=== PATIENT | male | born 1990 | race Caucasian/White ===

== ENCOUNTER 2024-11-02 14:18 | Emergency (ER) | payer SELFPAY ==
[2024-11-02] VITALS (14 sets, daily range): BP systolic 121–147; BP diastolic 84–100; PULSE 68–91; RESP 12–26; TEMP 36.6; O2SAT 97–100; BMI 25.8
--- NOTE | 2024-11-02 14:19 | DI.RAD.S_ITS ---
PROCEDURE: XR CHEST 1V INDICATIONS: Chest Pain TECHNIQUE: One view of the chest was acquired. COMPARISON: None. FINDINGS: Surgical changes and devices: None. Lungs and pleura: Lungs are clear. No pleural effusions or pneumothorax. Mediastinum: Mediastinal contours appear normal. Heart size is normal. Bones and chest wall: No suspicious bony lesions. Overlying soft tissues appear unremarkable. IMPRESSION: No acute pulmonary process. Dictated by: Randee Gibson M.D. on 11/02/2024 at 15:04 Approved by: Randee Gibson M.D. on 11/02/2024 at 15:04
--- NOTE | 2024-11-02 14:19 | EKG_ITS ---
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
--- NOTE | 2024-11-02 14:39 | ED.SYNCOPE ---
HPI - Syncope General Chief Complaint: Syncope Stated Complaint: Passed out at work Time Seen by Provider: 11/02/24 14:30 History of Present Illness HPI narrative: This patient is a 34-year-old healthy male presenting today with a syncopal episode. 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 Sounds like he was quickly woken up no significant trauma. And was driven here by POV. Patient reports that he does not generally eat breakfast or lunch does not eat till the afternoon. He has not had anything to eat today. He admits to drinking alcohol he used to drink a 5th a day but now has only a quarter of a 5th. He admits to drinking alcohol last night. Denies any other drug use or smoking today. It is slightly warm out side friend reports he does not tolerate the heat very well. Patient reports that he has had for 5 bottles of water. No injury from the fall. Denies any chest pain or shortness of breath now Related Data Allergies Allergy/AdvReac Type Severity Reaction Status Date / Time Sulfa (Sulfonamide Allergy Verified 11/02/24 14:36 Antibiotics) Exam Initial Vital Signs Initial Vital Signs: Vital Signs Temperature 97.8 F 11/02/24 14:25 Pulse Rate 91 H 11/02/24 14:25 Respiratory Rate 20 11/02/24 14:25 Blood Pressure 134/87 11/02/24 14:25 Pulse Oximetry 97 11/02/24 14:25 Oxygen Delivery Method Room Air 11/02/24 14:25 GENERAL: Alert pleasant well-appearing 34-year-old male and in no acute distress. HEENT: Head atraumatic,EOMI, pupils reactive, face symmetric, moist mucous membranes CARDIOVASCULAR: Regular rate and rhythm without murmurs, rubs or gallops. RESPIRATORY: Breath sounds equal bilaterally, no wheezes rales or rhonchi. ABDOMEN: Soft, nontender. Normoactive bowel sounds all 4 quadrants. No guarding or rebound. EXTREMITIES: Normal range of motion, no clubbing or edema. Neurovascularly intact NEUROLOGICAL: Alert and oriented x4.Normal gait and speech. Cranial nerves II through XII grossly intact. Team Psychologist strength equal bilaterally SKIN: Warm, dry, no laceration, no petechiae, no rashes or lesions. Course Orders Ordered: Discontinued Medications Aspirin (Aspirin 81 Mg Chew Tab) 324 mg PO NOW ONE Stop: 11/02/24 14:20 Last Admin: 11/02/24 15:35 Dose: 324 mg Documented By: DANNIELLE Sodium Chloride (Normal Saline 0.9%) 1,000 mls @ 1,000 mls/hr IV BOLUS ONE Stop: 11/02/24 15:38 Last Infusion: 11/02/24 16:30 Dose: Infused Documented By: Admin: 11/02/24 15:35 Dose: 1,000 mls/hr Documented By: DANNIELLE Potassium Chloride (Potassium Chloride 20 Meq Tab) 20 meq PO NOW ONE Stop: 11/02/24 17:42 Last Admin: 11/02/24 17:47 Dose: 20 meq Documented By: ELKIN Vital Signs Vital signs: Vital Signs - 8 hr 11/02/24 14:25 11/02/24 14:33 11/02/24 15:00 Temperature 97.8 F Pulse Rate 91 H 90 Pulse Rate [Orthostatic Lying] Pulse Rate [Orthostatic Sitting] Pulse Rate [Orthostatic Standing] Respiratory Rate 20 12 Blood Pressure 134/87 122/84 Blood Pressure [Orthostatic Lying] Blood Pressure [Orthostatic Sitting] Blood Pressure [Orthostatic Standing] Pulse Oximetry 97 Oxygen Delivery Method Room Air 11/02/24 15:00 11/02/24 15:23 11/02/24 15:23 Temperature Pulse Rate 89 86 Pulse Rate [Orthostatic Lying] Pulse Rate [Orthostatic Sitting] Pulse Rate [Orthostatic Standing] Respiratory Rate 14 17 Blood Pressure 134/90 Blood Pressure [Orthostatic Lying] Blood Pressure [Orthostatic Sitting] Blood Pressure [Orthostatic Standing] Pulse Oximetry 97 97 Oxygen Delivery Method 11/02/24 15:30 11/02/24 15:30 11/02/24 16:00 Temperature Pulse Rate 75 Pulse Rate [Orthostatic Lying] Pulse Rate [Orthostatic Sitting] Pulse Rate [Orthostatic Standing] Respiratory Rate 14 Blood Pressure 121/86 147/100 H Blood Pressure [Orthostatic Lying] Blood Pressure [Orthostatic Sitting] Blood Pressure [Orthostatic Standing] Pulse Oximetry 97 Oxygen Delivery Method 11/02/24 16:00 11/02/24 16:23 11/02/24 16:23 Temperature Pulse Rate 79 68 Pulse Rate [Orthostatic Lying] Pulse Rate [Orthostatic Sitting] Pulse Rate [Orthostatic Standing] Respiratory Rate 26 H 14 Blood Pressure 141/84 H Blood Pressure [Orthostatic Lying] Blood Pressure [Orthostatic Sitting] Blood Pressure [Orthostatic Standing] Pulse Oximetry 99 98 Oxygen Delivery Method 11/02/24 16:30 11/02/24 16:30 11/02/24 16:44 Temperature Pulse Rate 69 77 Pulse Rate [Orthostatic Lying] Pulse Rate [Orthostatic Sitting] Pulse Rate [Orthostatic Standing] Respiratory Rate 13 12 Blood Pressure 129/85 Blood Pressure [Orthostatic Lying] Blood Pressure [Orthostatic Sitting] Blood Pressure [Orthostatic Standing] Pulse Oximetry 99 100 Oxygen Delivery Method 11/02/24 16:44 11/02/24 16:45 11/02/24 16:45 Temperature Pulse Rate 76 Pulse Rate [Orthostatic Lying] Pulse Rate [Orthostatic Sitting] Pulse Rate [Orthostatic Standing] Respiratory Rate 12 Blood Pressure 135/89 135/87 Blood Pressure [Orthostatic Lying] Blood Pressure [Orthostatic Sitting] Blood Pressure [Orthostatic Standing] Pulse Oximetry 100 Oxygen Delivery Method 11/02/24 17:12 Temperature Pulse Rate Pulse Rate [Orthostatic Lying] 69 Pulse Rate [Orthostatic Sitting] 68 Pulse Rate [Orthostatic Standing] 69 Respiratory Rate Blood Pressure Blood Pressure [Orthostatic Lying] 129/88 Blood Pressure [Orthostatic Sitting] 146/92 H Blood Pressure [Orthostatic Standing] 144/97 H Pulse Oximetry Oxygen Delivery Method MDM - Syncope Lab Data 11/02/24 14:30 11/02/24 14:30 Labs: Lab Results 11/02/24 11/02/24 11/02/24 Range/Units 14:30 14:33 16:45 WBC 8.9 (4.5-11.0) X10^3/uL RBC 4.51 (4.5-5.9) X10^6/uL Hgb 15.5 (13.5-17.5) g/dL Hct 44.2 (41-53) % MCV 97.9 (80-100) fL MCH 34.3 H (26-34) PG MCHC 35.1 (30-36) % RDW 12.9 (11.6-14.8) % Plt Count 156 (150-400) X10^3/uL Neut % (Auto) 80.7 H (50-75) % Lymph % (Auto) 10.6 L (25-40) % [place] % (Auto) 7.6 (3-14) % Eos % (Auto) 0.1 L (2-4) % Baso % (Auto) 1.0 (0-2) % Neut # (Auto) 7200 H (6289-2781) /uL Lymph # (Auto) 900 L (0159-1673) /uL [place] # (Auto) 700 (0-900) /uL Eos # (Auto) 0 (0-450) /uL Baso # (Auto) 100 (0-100) /uL PT 12.2 (9.4-12.5) SECONDS INR 1.1 (0.9-1.3) APTT 24 L (25.1-36.5) SECONDS D-Dimer 2604 H (<500) ng/ml Sodium 136 L (137-145) mmol/L Potassium 3.0 L (3.4-5.1) mmol/L Chloride 100 (98-107) mmol/L Carbon Dioxide 16 L (22-32) mmol/L BUN 6 L (9-20) mg/dL Creatinine 0.79 (0.66-1.25) mg/dL Estimated GFR > 60 (>60) mL/min BUN/Creatinine Ratio 7.6 (6-22) Glucose 130 H (70-99) mg/dL POC Whole Bld Glucose 138 H (70-99) mg/dL Calcium 9.9 (8.4-10.2) mg/dL Magnesium 1.4 L (1.6-2.3) mg/dL Total Bilirubin 3.3 H (0.2-1.3) mg/dL AST 284 H (17-59) IU/L ALT 130 H (<50) IU/L Alkaline Phosphatase 102 (38-126) U/L Total Creatine Kinase 928 H (55-170) U/L Troponin I < 0.012 (0.01-0.034) ng/mL NT-Pro-B Natriuret Pep < 20 (<125) pg/mL Total Protein 8.4 H (6.3-8.2) g/dL Albumin 5.1 H (3.5-5.0) g/dL Globulin 3.3 (1.7-4.1) g/dL Albumin/Globulin Ratio 1.5 (1.0-2.8) Lipase 95 (23-300) U/L Urine RBC 0-1/hpf (0-5/HPF) Urine WBC 0-1/hpf (0-5/HPF) Ur Squamous Epith Cells 0-1 /hpf (0-5/HPF) Calcium Oxalate Crystal Moderate H Urine Bacteria Occasional (0-1) (None) Urine Mucus 3+ H (Negative) Vol Urine Centrifuged 10ml (spun) Ethyl Alcohol < 10 (<10) mg/dL Point of Care Testing Glucose POC 138 Urine Dip Bedside Urine Glucose Negative Bedside Urine Bilirubin - Negative Bedside Urine Ketone +++ 80 Urine Specific Foley 1.010 Bedside Urine Occult Blood - Negative Bedside Urine pH 7.0 Bedside Urine Protein +/- 15 Bedside Urine Urobilinogen - Negative Bedside Urine Nitrite - Negative Bedside Urine Leukocytes - Negative Esterase Imaging Data CT scan - chest: Radiologist's Impression: PROCEDURE: CT ANGIO CHEST PE PROTOCOL INDICATIONS: syncope TECHNIQUE: After the administration of intravenous contrast, 2 mm thick sections acquired from the pulmonary apices to the posterior costophrenic angles. 3-dimensional maximum intensity projection (MIP) coronal and sagittal reformats were then acquired through the thorax. For radiation dose reduction, the following was used: automated exposure control, adjustment of mA and/or kV according to patient size. COMPARISON: [facility], , XR CHEST 1V, 11/02/2024, 14:30. FINDINGS: Image quality: Diagnostic. Pulmonary arteries: Pulmonary arteries are normal in size, and demonstrate no intraluminal filling defects to suggest central pulmonary embolism. Lower Neck: No enlarged lymph nodes. Thyroid: No thyroid nodules which require sonographic follow up, per consensus guidelines. Axillae: No enlarged lymph nodes. Chest Wall: Unremarkable. Bones: Unremarkable. Lungs and Pleura: No pneumothorax or pleural effusions. No consolidation or suspicious nodules. Heart: Heart size is normal. No pericardial effusion. Thoracic Vessels: No aortic aneurysm. Mediastinum and Jim[place]: No enlarged lymph nodes. Esophagus: No wall thickening. No hiatal hernia. Upper Abdomen: Hepatic steatosis. IMPRESSION: No pulmonary embolus. No acute cardiopulmonary process. Dictated by: Randee Gibson M.D. on 11/02/2024 at 15:43 Chest x-ray: Radiologist's Impression: PROCEDURE: XR CHEST 1V INDICATIONS: Chest Pain TECHNIQUE: One view of the chest was acquired. COMPARISON: None. FINDINGS: Surgical changes and devices: None. Lungs and pleura: Lungs are clear. No pleural effusions or pneumothorax. Mediastinum: Mediastinal contours appear normal. Heart size is normal. Bones and chest wall: No suspicious bony lesions. Overlying soft tissues appear unremarkable. IMPRESSION: No acute pulmonary process. Dictated by: Randee Gibson M.D. on 11/02/2024 at 15:04 US - abdomen: Radiologist's Impression: PROCEDURE: US ABDOMEN LIMITED INDICATIONS: elevated liver enzymes and bili TECHNIQUE: Real-time scanning was performed of the abdominal and retroperitoneal organs, with image documentation. COMPARISON: None. FINDINGS: Liver: Increased liver echogenicity with posterior attenuation, most consistent with moderate to severe steatosis. Gallbladder: No gallstones. No wall thickening. No pericholecystic edema. Negative sonographic Greene's sign. Biliary ducts: Intrahepatic bile ducts are non-dilated. Extrahepatic bile duct caliber measures 4 mm. Normal is 6-7 mm or less in diameter, or 10 mm or less post-cholecystectomy. Pancreas: Visualized portions of the pancreas are sonographically normal. Miscellaneous: No free abdominal fluid. IMPRESSION: Hepatic steatosis. In the absence of alcohol use or other confounding factors, elevated LFTs may indicate [id number] steatohepatitis (MASH). No gallstones or biliary dilation. Dictated by: Shaun Hair M.D. 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 Pertinent findings: D-dimer 2604 WBCs 8.9 hemoglobin 15.5 hematocrit 44.2 CMP potassium is 3.0, bicarb 16 creatinine 0.7 glucose is 138 Bilirubin 3.3 AST 284 ALT 130 CPK 928 Independently reviewed EKG as above Imaging studies independently reviewed: CT angio no pulmonary embolism Chest x-ray no acute cardiopulmonary process Ultrasound right upper quadrant hepatic steatosis no gallstones or dilatation Consultations: None Treatments: IV fluids Re-evaluations: Patient is ambulatory to the restroom without any assistance overall feeling better Discussion: Patient is a 34-year-old male presents today after a syncopal episode while at work. He does admit to drinking alcohol it sounds like it was pretty excessive. He is noted to have elevated liver enzymes and bilirubin. Suspect these are elevated secondary to alcohol abuse ultrasound is negative for gall bladder etiology. His D-dimer was quite elevated as well. CT angio ruled out pulmonary embolism. Vitals are otherwise stable. I suspect he had a syncopal episode likely due to dehydration alcohol use CT Discharge Plan Departure Patient Disposition: Home Clinical Impression: Vasovagal syncope, Alcohol use, Acute hypokalemia Instructions: DI for Syncope in Adults (Fainting) Activity Restrictions/Additional Instructions: *You have been diagnosed with syncope, alcohol abuse, low potassium *What to do: At this time your liver enzymes are elevated this is likely due to alcohol abuse. I strongly recommend that you seek detox. *Continue to take medications as directed *Follow up with your primary care provider in 2-3 days or call [phone] *Return to ER if you should have recurrent episode of passing out or any new, worsening or concerning symptoms Referrals: Jorgito Seaman MD [Primary Care Provider, Pediatrics] Stand Alone Forms: Patient Portal/API
[2024-11-02 14:41] LABS: Add Manual Diff / Slide Review NO; Hematocrit 44.2 % (41-53); Hemoglobin 15.5 g/dL (13.5-17.5); Lymphocytes Absolute Auto 900 /uL (1100-4500); Mean Corpuscular HGB Conc 35.1 % (30-36); Mean Corpuscular Hemoglobin 34.3 PG (26-34); Mean Corpuscular Volume 97.9 fL (80-100); Platelet Count 156 X10^3/uL (150-400)
[2024-11-02 14:49] LABS: INR 1.1 (0.9-1.3); Prothrombin Time 12.2 SECONDS (9.4-12.5)
[2024-11-02 14:52] LABS: Alanine Aminotransferase 130 IU/L (<50); Albumin 5.1 g/dL (3.5-5.0); Albumin Globulin Ratio 1.5 (1.0-2.8); Alkaline Phosphatase 102 U/L (38-126); Blood Urea Nitrogen 6 mg/dL (9-20); Calcium 9.9 mg/dL (8.4-10.2); Carbon Dioxide 16 mmol/L (22-32); Chloride 100 mmol/L (98-107); Creatine Kinase 928 U/L (55-170); Estimated Glomerular Filt Rate > 60 mL/min (>60); Globulin 3.3 g/dL (1.7-4.1); Glucose 130 mg/dL (70-99); HEMOLYSIS < 15 (0-50); Lipase 95 U/L (23-300); Magnesium 1.4 mg/dL (1.6-2.3); PTT Partial Thromboplastin Tim 24 SECONDS (25.1-36.5); Potassium 3.0 mmol/L (3.4-5.1); Sodium 136 mmol/L (137-145); Total Protein 8.4 g/dL (6.3-8.2)
[2024-11-02 15:05] LABS: NT-proBNP (BNP-Adult 18+) < 20 pg/mL (<125); Troponin I < 0.012 ng/mL (0.01-0.034)
--- NOTE | 2024-11-02 15:10 | DI.CT.S_ITS ---
PROCEDURE: CT ANGIO CHEST PE PROTOCOL INDICATIONS: syncope TECHNIQUE: After the administration of intravenous contrast, 2 mm thick sections acquired from the pulmonary apices to the posterior costophrenic angles. 3-dimensional maximum intensity projection (MIP) coronal and sagittal reformats were then acquired through the thorax. For radiation dose reduction, the following was used: automated exposure control, adjustment of mA and/or kV according to patient size. COMPARISON: [facility], CR, XR CHEST 1V, 11/02/2024, 14:30. FINDINGS: Image quality: Diagnostic. Pulmonary arteries: Pulmonary arteries are normal in size, and demonstrate no intraluminal filling defects to suggest central pulmonary embolism. Lower Neck: No enlarged lymph nodes. Thyroid: No thyroid nodules which require sonographic follow up, per consensus guidelines. Axillae: No enlarged lymph nodes. Chest Wall: Unremarkable. Bones: Unremarkable. Lungs and Pleura: No pneumothorax or pleural effusions. No consolidation or suspicious nodules. Heart: Heart size is normal. No pericardial effusion. Thoracic Vessels: No aortic aneurysm. Mediastinum and [place]: No enlarged lymph nodes. Esophagus: No wall thickening. No hiatal hernia. Upper Abdomen: Hepatic steatosis. IMPRESSION: No pulmonary embolus. No acute cardiopulmonary process. Dictated by: Randee Gibson M.D. on 11/02/2024 at 15:43 Approved by: Randee Gibson M.D. on 11/02/2024 at 15:44
[2024-11-02] MEDS: SODIUM CHLORIDE 0.9% 1,000 ML 1000 ML IV (15:35)
[2024-11-02] MEDS: ASPIRIN 81 MG CHEW TAB 324 MG PO (15:35)
--- NOTE | 2024-11-02 16:33 | DI.US.S_ITS ---
PROCEDURE: US ABDOMEN LIMITED INDICATIONS: elevated liver enzymes and bili TECHNIQUE: Real-time scanning was performed of the abdominal and retroperitoneal organs, with image documentation. COMPARISON: None. FINDINGS: Liver: Increased liver echogenicity with posterior attenuation, most consistent with moderate to severe steatosis. Gallbladder: No gallstones. No wall thickening. No pericholecystic edema. Negative sonographic Greene's sign. Biliary ducts: Intrahepatic bile ducts are non-dilated. Extrahepatic bile duct caliber measures 4 mm. Normal is 6-7 mm or less in diameter, or 10 mm or less post-cholecystectomy. Pancreas: Visualized portions of the pancreas are sonographically normal. Miscellaneous: No free abdominal fluid. IMPRESSION: Hepatic steatosis. In the absence of alcohol use or other confounding factors, elevated LFTs may indicate [id number]-rkwzlubfrtq-wrovvffgmb steatohepatitis (MASH). No gallstones or biliary dilation. Dictated by: Shaun Hair M.D. on 11/02/2024 at 17:32 Approved by: Shaun Hair M.D. on 11/02/2024 at 17:33
--- NOTE | 2024-11-02 16:54 | PC.NURSE ---
Pt ambulated with steady gait to bathroom. States that he still feels slightly dizzy when he ambulates, but much better than when he arrived. Denies sob, cp, n/v.
[2024-11-02] MEDS: POTASSIUM CHLORIDE 20 MEQ TAB PO (17:47)
[2024-11-02 17:52] LABS: Ethanol (ETOH) < 10 mg/dL (<10)
== END 2024-11-02 17:55 | disposition home or self-care (01) ==
PROVIDERS: Emergency Provider Emergency Medicine; Family Provider Pediatrics; PCP Pediatrics
DX: R55 Syncope and collapse (principal); E87.6 Hypokalemia; R07.9 Chest pain, unspecified; F10.90 Alcohol use, unspecified, uncomplicated
CPT/HCPCS: 36415; 71045; 71275; 76705; 80053; 80320; 81003; 81015; 82550; 82962; 83690; 83735; 83880; 84484; 85025; 85379; 85610; 85730; 87086; 93005; 93010; 96360; 99284; Q9967